=== PATIENT | male | born 1960 | race Caucasian/White ===

== ENCOUNTER 2016-12-12 02:17 | Emergency (ER) | payer MEDICARE ==
[~2016-12-12] VITALS: Ht 177.8 cm; Wt 73.7 kg
[~2016-12-12 02:17] MED LIST: CLON0.1T; CLON0.5T PO; FLUO20CA19; FLUO40CA9 PO; thorazine PO
[2016-12-12 02:20] VITALS: BP 166/109
[2016-12-12] MEDS ORDERED: OXYcodone/APAP 5/325MG TABLET ONE (02:58)
[2016-12-12] MEDS ORDERED: OXYcodone/APAP 5/325MG TABLET PO ONE (03:00)
== END 2016-12-12 03:42 | disposition home or self-care (01) ==
LOC: ED 03:36
DX: S20.212A Contusion of left front wall of thorax, initial encounter (principal); G89.11 Acute pain due to trauma; J44.9 Chronic obstructive pulmonary disease, unspecified; F31.9 Bipolar disorder, unspecified; F43.10 Post-traumatic stress disorder, unspecified; F19.10 Other psychoactive substance abuse, uncomplicated; F98.8 Other specified behavioral and emotional disorders with onset usually occurring in childhood and adolescence; W19.XXXA Unspecified fall, initial encounter; Y93.89 Activity, other specified; Y92.098 Other place in other non-institutional residence as the place of occurrence of the external cause; Y99.8 Other external cause status
CPT/HCPCS: 99284

== ENCOUNTER 2017-01-14 00:21 | Emergency (ER) | payer MEDICARE ==
[~2017-01-14] VITALS: Ht 177.8 cm; Wt 68.0 kg
[2017-01-14 00:28] VITALS: BP 174/111
[2017-01-14] MEDS ORDERED: ZIPRASIDONE 20 MG INJ IM ONE ×2 (00:30→01:00)
[2017-01-14 01:12] LABS: HEMATOCRIT 51.8 % (39.2-51.8); HEMOGLOBIN 17.4 g/dL (13.7-18.0); WHITE BLOOD COUNT 11.3 x10^3/uL (3.4-10)
[2017-01-14 01:23] LABS: BLOOD UREA NITROGEN 15 mg/dL (7-18)
[2017-01-14 01:29] LABS: ACETAMINOPHEN < 2 mcg/mL (10-30); ASPARTATE AMINO TRANSFERASE 79 U/L (15-37)
== END 2017-01-14 01:37 | disposition left against medical advice (07) ==
LOC: ED 01:31
DX: F15.10 Other stimulant abuse, uncomplicated (principal); R44.3 Hallucinations, unspecified; J44.9 Chronic obstructive pulmonary disease, unspecified; F17.200 Nicotine dependence, unspecified, uncomplicated
CPT/HCPCS: 36415; 80053; 80307; 80329; 85025; 99284; G0480

== ENCOUNTER 2018-02-24 07:45 | Emergency (ER) | payer MEDICARE ==
[~2018-02-24] VITALS: Ht 175.3 cm; Wt 71.2 kg
[2018-02-24 08:33] LABS: BASOPHILS # (AUTO) 0.03 x10^3/uL (0-0.1); BASOPHILS % (AUTO) 0 % (0-1); EOSINOPHILS # (AUTO) 0.18 x10^3/uL (0-0.4); EOSINOPHILS % (AUTO) 3 % (1-7); LYMPHOCYTES # (AUTO) 1.82 x10^3/uL (1-3.4); LYMPHOCYTES % (AUTO) 26 % (22-44); MD NO; MEAN CORPUSCULAR HEMOGLOBIN 31.6 pg (27.5-34.5); MEAN CORPUSCULAR HGB CONC 34.3 g/dL (33.2-36.2); MEAN CORPUSCULAR VOLUME 92.3 fL (81-97); MEAN PLATELET VOLUME 8.3 fL (7.4-10.4); MONOCYTES # (AUTO) 0.88 x10^3/uL (0.2-0.8); MONOCYTES % (AUTO) 12 % (2-9); NEUTROPHILS # (AUTO) 4.15 x10^3/uL (1.8-6.8); NEUTROPHILS % (AUTO) 59 % (42-75); PLATELET COUNT 333 x10^3/uL (130-400); RED BLOOD COUNT 5.22 x10^6/uL (4.38-5.82); RED CELL DISTRIBUTION WIDTH 14.5 % (9.4-14.8)
[2018-02-24 08:44] LABS: ALANINE AMINOTRANSFERASE 288 U/L (12-78); ALBUMIN 3.8 g/dL (3.4-5.0); ANION GAP 9 mmol/L (5-15); CALCIUM 8.8 mg/dL (8.5-10.1); CHLORIDE 105 mmol/L (98-107); CREATININE 0.78 mg/dL (0.7-1.3)
[2018-02-24 08:47] LABS: ALKALINE PHOSPHATASE 117 U/L (45-117); BILIRUBIN,TOTAL 0.9 mg/dL (0.2-1.0); TOTAL PROTEIN 7.9 g/dL (6.4-8.2)
[2018-02-24] MEDS ORDERED: LORazepam 1MG TABLET PO ONE (09:30)
[2018-02-24 09:51] LABS: CULTURE INDICATED? NO; MICROSCOPIC NOT IND
[2018-02-24] MEDS ORDERED: LORazepam 2 MG/ML, 1ML IVPush ONE (10:00)
[2018-02-24] MEDS ORDERED: SODIUM CHLORIDE FLUSH 10ML SYR IVF ONE (10:00)
[2018-02-24] MEDS ORDERED: THIAMINE 100MG TABLET PO ONE (10:00)
[2018-02-24] MEDS ORDERED: SODIUM CHLORIDE 0.9% 1,000ML IVBOLUS ONE (10:00)
[2018-02-24] MEDS ORDERED: LORazepam 2 MG/ML, 1ML ONE (10:26)
[2018-02-24 10:35] VITALS: BP 151/101
== END 2018-02-24 12:14 | disposition home or self-care (01) ==
LOC: ED 10:56
DX: R10.31 Right lower quadrant pain (principal); I10 Essential (primary) hypertension; F31.64 Bipolar disorder, current episode mixed, severe, with psychotic features; F15.10 Other stimulant abuse, uncomplicated; R74.0 Nonspecific elevation of levels of transaminase and lactic acid dehydrogenase [LDH]; J44.9 Chronic obstructive pulmonary disease, unspecified; F41.1 Generalized anxiety disorder
CPT/HCPCS: 36415; 74021; 80053; 81003; 85025; 96374; 99285; J2060; J7030

== ENCOUNTER 2019-07-21 14:18 | Inpatient (IN) | payer MEDICARE ==
[~2019-07-21] VITALS: Ht 177.8 cm; Wt 74.8 kg
[~2019-07-21 14:18] MED LIST changes: -CLON0.1T; +CLON0.1T22
[2019-07-21] MEDS ORDERED: BISACODYL 10 MG SUPP PR PRN (20:00)
[2019-07-21] MEDS ORDERED: ACETAMINOPHEN 325 MG TABLET PO PRN (20:00)
[2019-07-21] MEDS ORDERED: ONDANSETRON ODT 4 MG PO PRN (20:00)
[2019-07-21] MEDS ORDERED: POLYETHYLENE GLYCOL 17 GM PACKET PO PRN (20:00)
[2019-07-21 22:25] VITALS: BP_SYST 118; BP_SYST 131; BP_DIAS 91; BP_DIAS 94
[2019-07-21 23:00] VITALS: BP 131/94
[2019-07-21 23:21] LABS: CULTURE INDICATED? YES; MICROSCOPIC INDICATED
[2019-07-21 23:32] LABS: AMPHETAMINE SCREEN, URINE Negative (Negative); BARBITURATE SCREEN, URINE Negative (Negative); BENZODIAZEPINE SCREEN, URINE Negative (Negative); CANNABINOID SCREEN, URINE Positive (Negative); COCAINE SCREEN, URINE Negative (Negative); METHADONE SCREEN, URINE Negative (Negative); OPIATE SCREEN, URINE Negative (Negative)
[2019-07-22] MEDS ORDERED: ALBUTEROL SULFATE 2.5 MG/3 ML NPPB PRN (01:30)
[2019-07-22 06:36] LABS: BASOPHILS # (AUTO) 0.03 x10^3/uL (0-0.1); BASOPHILS % (AUTO) 0 % (0-1); EOSINOPHILS # (AUTO) 0.45 x10^3/uL (0-0.4); EOSINOPHILS % (AUTO) 6 % (1-7); LYMPHOCYTES # (AUTO) 2.27 x10^3/uL (1-3.4); LYMPHOCYTES % (AUTO) 32 % (22-44); MD NO; MEAN CORPUSCULAR HEMOGLOBIN 32.5 pg (27.5-34.5); MEAN CORPUSCULAR VOLUME 95.5 fL (81-97); MEAN PLATELET VOLUME 9.9 fL (7.4-10.4); MONOCYTES # (AUTO) 0.68 x10^3/uL (0.2-0.8); MONOCYTES % (AUTO) 10 % (2-9); NEUTROPHILS # (AUTO) 3.77 x10^3/uL (1.8-6.8); NEUTROPHILS % (AUTO) 52 % (42-75); PLATELET COUNT 205 x10^3/uL (130-400); RED BLOOD COUNT 4.93 x10^6/uL (4.38-5.82); RED CELL DISTRIBUTION WIDTH 14.6 % (9.4-14.8)
[2019-07-22 06:53] LABS: ANION GAP 8 mmol/L (5-15); CALCIUM 8.8 mg/dL (8.5-10.1); CHLORIDE 114 mmol/L (98-107); CHOLESTEROL, TOTAL 100 mg/dL (140-239); CREATININE 0.78 mg/dL (0.7-1.3); TRIGLYCERIDES 86 mg/dL (50-200); VLDL CHOLESTEROL 17 mg/dL (0-25)
[2019-07-22] MEDS: MUPIROCIN OINT 2%, 22GM TP SCH ×2 (07:00→17:53)
[2019-07-22 07:19] LABS: CHOL/HDL RATIO 2.8; FREE T4 (FREE THYROXINE) 1.31 ng/dL (0.76-1.46); HDL CHOL % 36 % (26-37); HDL CHOLESTEROL (DIRECT) 36 mg/dL (40-60); LDL CHOLESTEROL,CALCULATED 47 mg/dL (54-169); LDL/HDL RATIO 1.3 (0.5-3.0)
[2019-07-22 07:24] VITALS: BP 120/84
[2019-07-22] MEDS: NICOTINE 21 MG/24 HR PATCH.TD24 TD SCH (08:36)
[2019-07-22] MEDS: DOCUSATE 100 MG CAPSULE PO PRN (08:37)
[2019-07-22] MEDS: hydrOXyzine 50MG TABLET PO PRN (08:37)
[2019-07-22 09:23] LABS: ALBUMIN 3.3 g/dL (3.4-5.0); BILIRUBIN, DIRECT 0.2 mg/dL (0.1-0.2)
[2019-07-22 09:31] LABS: BILIRUBIN,INDIRECT 0.3 mg/dL (0.0-2.0); BILIRUBIN,TOTAL 0.5 mg/dL (0.2-1.0)
[2019-07-22] MEDS: LACTULOSE 20 GM/30 ML UDC PO SCH (10:08)
[2019-07-22] MEDS: BUSPIRONE 5 MG TABLET PO SCH ×3 (14:40→20:14)
[2019-07-22] MEDS: FLUOXETINE HCL 20 MG CAPSULE PO SCH (14:40)
[2019-07-22 20:04] VITALS: BP 115/75
[2019-07-22] MEDS: ZIPRASIDONE 40MG CAPSULE PO SCH (20:14)
[2019-07-23] MEDS: MUPIROCIN OINT 2%, 22GM TP SCH ×2 (06:07→18:19)
[2019-07-23 06:39] LABS: ALBUMIN 3.2 g/dL (3.4-5.0); ANION GAP 7 mmol/L (5-15); CALCIUM 8.9 mg/dL (8.5-10.1); CHLORIDE 112 mmol/L (98-107)
[2019-07-23 06:43] LABS: ALANINE AMINOTRANSFERASE 112 U/L (12-78); ALKALINE PHOSPHATASE 78 U/L (45-117); BILIRUBIN,TOTAL 0.5 mg/dL (0.2-1.0); CREATININE 0.79 mg/dL (0.7-1.3); TOTAL PROTEIN 6.8 g/dL (6.4-8.2)
[2019-07-23 07:25] VITALS: BP 118/77
[2019-07-23] MEDS: ZIPRASIDONE 40MG CAPSULE PO SCH ×2 (08:26→20:03)
[2019-07-23] MEDS: FLUOXETINE HCL 20 MG CAPSULE PO SCH (08:26)
[2019-07-23] MEDS: LACTULOSE 20 GM/30 ML UDC PO SCH (08:26)
[2019-07-23] MEDS: hydrOXyzine 50MG TABLET PO PRN (08:27)
[2019-07-23] MEDS: NICOTINE 21 MG/24 HR PATCH.TD24 TD SCH (08:27)
[2019-07-23] MEDS: DOCUSATE 100 MG CAPSULE PO PRN (08:27)
[2019-07-23] MEDS: BUSPIRONE 5 MG TABLET PO SCH ×3 (08:27→20:03)
[2019-07-23] MEDS ORDERED: LORazepam 1MG TABLET ONE (14:10)
[2019-07-23] MEDS: IBUPROFEN 200 MG TABLET PO PRN (14:13)
[2019-07-23] MEDS ORDERED: LORazepam 1MG TABLET PO ONE (14:30)
[2019-07-24] MEDS: MUPIROCIN OINT 2%, 22GM TP SCH ×2 (06:03→17:51)
[2019-07-24 07:51] VITALS: BP 131/87
[2019-07-24] MEDS: BUSPIRONE 5 MG TABLET PO SCH ×3 (08:36→20:11)
[2019-07-24] MEDS: FLUOXETINE HCL 20 MG CAPSULE PO SCH (08:36)
[2019-07-24] MEDS: ZIPRASIDONE 40MG CAPSULE PO SCH ×2 (08:36→20:11)
[2019-07-24] MEDS: LACTULOSE 20 GM/30 ML UDC PO SCH (08:36)
[2019-07-24] MEDS: NICOTINE 21 MG/24 HR PATCH.TD24 TD SCH (08:38)
[2019-07-24] MEDS: IBUPROFEN 200 MG TABLET PO PRN (08:43)
[2019-07-24] MEDS: hydrOXyzine 50MG TABLET PO PRN ×3 (08:43→20:11)
[2019-07-24] MEDS ORDERED: LORazepam 1MG TABLET PO ONE (17:30)
[2019-07-24 19:38] VITALS: BP 131/84
[2019-07-25] MEDS: MUPIROCIN OINT 2%, 22GM TP SCH ×2 (06:30→17:41)
[2019-07-25 07:34] VITALS: BP 124/82
[2019-07-25] MEDS: LACTULOSE 20 GM/30 ML UDC PO SCH (09:00)
[2019-07-25] MEDS: FLUOXETINE HCL 20 MG CAPSULE PO SCH (09:00)
[2019-07-25] MEDS: IBUPROFEN 200 MG TABLET PO PRN (09:00)
[2019-07-25] MEDS: ZIPRASIDONE 40MG CAPSULE PO SCH ×2 (09:01→20:41)
[2019-07-25] MEDS: BUSPIRONE 5 MG TABLET PO SCH ×3 (09:01→20:41)
[2019-07-25] MEDS: NICOTINE 21 MG/24 HR PATCH.TD24 TD SCH (09:01)
[2019-07-25] MEDS: QUETIAPINE 25MG TABLET PO PRN ×2 (10:54→20:45)
[2019-07-25] MEDS: hydrOXyzine 50MG TABLET PO PRN (14:05)
[2019-07-25 19:45] VITALS: BP 110/73
[2019-07-26] MEDS: QUETIAPINE 25MG TABLET PO PRN ×3 (03:17→20:33)
[2019-07-26] MEDS: MUPIROCIN OINT 2%, 22GM TP SCH ×2 (06:22→16:17)
[2019-07-26 07:39] VITALS: BP 120/84
[2019-07-26] MEDS: FLUOXETINE HCL 20 MG CAPSULE PO SCH (08:35)
[2019-07-26] MEDS: BUSPIRONE 5 MG TABLET PO SCH ×3 (08:36→20:33)
[2019-07-26] MEDS: ZIPRASIDONE 40MG CAPSULE PO SCH ×2 (08:36→20:33)
[2019-07-26] MEDS: hydrOXyzine 50MG TABLET PO PRN ×2 (08:36→16:17)
[2019-07-26] MEDS: NICOTINE 21 MG/24 HR PATCH.TD24 TD SCH (08:36)
[2019-07-26] MEDS: LACTULOSE 20 GM/30 ML UDC PO SCH (08:36)
[2019-07-26] MEDS ORDERED: LORazepam 1MG TABLET ONE (11:06)
[2019-07-26] MEDS: LORazepam 1MG TABLET PO PRN ×2 (11:09→20:33)
[2019-07-26 19:46] VITALS: BP 115/79
[2019-07-27 07:11] VITALS: BP 137/91
[2019-07-27] MEDS: FLUOXETINE HCL 20 MG CAPSULE PO SCH (08:20)
[2019-07-27] MEDS: LACTULOSE 20 GM/30 ML UDC PO SCH (08:20)
[2019-07-27] MEDS: NICOTINE 21 MG/24 HR PATCH.TD24 TD SCH (08:20)
[2019-07-27] MEDS: BUSPIRONE 5 MG TABLET PO SCH ×3 (08:20→20:13)
[2019-07-27] MEDS: ZIPRASIDONE 40MG CAPSULE PO SCH (08:20)
[2019-07-27] MEDS: hydrOXyzine 50MG TABLET PO PRN ×2 (08:40→16:48)
[2019-07-27] MEDS: LORazepam 1MG TABLET PO PRN ×2 (08:41→20:13)
[2019-07-27] MEDS: MUPIROCIN OINT 2%, 22GM TP SCH ×2 (08:41→21:12)
[2019-07-27] MEDS: QUETIAPINE 25MG TABLET PO PRN ×3 (11:29→20:15)
[2019-07-27 19:30] VITALS: BP 107/74
[2019-07-27] MEDS: ZIPRASIDONE 20MG CAPSULE PO SCH (20:13)
[2019-07-28 07:15] VITALS: BP 125/73
[2019-07-28] MEDS: FLUOXETINE HCL 20 MG CAPSULE PO SCH (08:10)
[2019-07-28] MEDS: LACTULOSE 20 GM/30 ML UDC PO SCH (08:10)
[2019-07-28] MEDS: ZIPRASIDONE 20MG CAPSULE PO SCH ×2 (08:10→20:10)
[2019-07-28] MEDS: NICOTINE 21 MG/24 HR PATCH.TD24 TD SCH (08:10)
[2019-07-28] MEDS: BUSPIRONE 5 MG TABLET PO SCH ×3 (08:11→20:09)
[2019-07-28] MEDS: LORazepam 1MG TABLET PO PRN ×2 (08:30→20:13)
[2019-07-28] MEDS: QUETIAPINE 25MG TABLET PO PRN ×2 (08:31→13:56)
[2019-07-28] MEDS: MUPIROCIN OINT 2%, 22GM TP SCH ×2 (08:36→21:16)
[2019-07-28] MEDS: hydrOXyzine 50MG TABLET PO PRN (13:56)
[2019-07-28 19:31] VITALS: BP 129/83
[2019-07-28] MEDS: IBUPROFEN 200 MG TABLET PO PRN (20:00)
[2019-07-29 07:16] VITALS: BP 139/98
[2019-07-29] MEDS: LORazepam 1MG TABLET PO PRN (08:40)
[2019-07-29] MEDS: FLUOXETINE HCL 20 MG CAPSULE PO SCH (08:40)
[2019-07-29] MEDS: LACTULOSE 20 GM/30 ML UDC PO SCH (08:40)
[2019-07-29] MEDS: ZIPRASIDONE 20MG CAPSULE PO SCH ×2 (08:41→20:09)
[2019-07-29] MEDS: BUSPIRONE 5 MG TABLET PO SCH ×3 (08:41→20:08)
[2019-07-29] MEDS: IBUPROFEN 200 MG TABLET PO PRN ×2 (08:41→16:48)
[2019-07-29] MEDS: NICOTINE 21 MG/24 HR PATCH.TD24 TD SCH (08:43)
[2019-07-29] MEDS: MUPIROCIN OINT 2%, 22GM TP SCH ×2 (08:44→20:09)
[2019-07-29] MEDS: QUETIAPINE 25MG TABLET PO PRN ×2 (09:49→17:45)
[2019-07-29 19:15] VITALS: BP 148/91
[2019-07-29] MEDS: DIVALPROEX 500 MG TAB.ER.24H PO SCH (20:08)
[2019-07-30 07:05] VITALS: BP 151/101
[2019-07-30] MEDS: FLUOXETINE HCL 20 MG CAPSULE PO SCH (08:31)
[2019-07-30] MEDS: BUSPIRONE 5 MG TABLET PO SCH ×3 (08:31→20:12)
[2019-07-30] MEDS: DIVALPROEX 500 MG TAB.ER.24H PO SCH ×4 (08:31→20:12)
[2019-07-30] MEDS: ZIPRASIDONE 20MG CAPSULE PO SCH ×2 (08:32→20:12)
[2019-07-30] MEDS: NICOTINE 21 MG/24 HR PATCH.TD24 TD SCH (08:32)
[2019-07-30] MEDS: LACTULOSE 20 GM/30 ML UDC PO SCH (08:39)
[2019-07-30] MEDS: LORazepam 1MG TABLET PO PRN ×2 (08:39→20:12)
[2019-07-30] MEDS: QUETIAPINE 25MG TABLET PO PRN (11:15)
[2019-07-30] MEDS: MUPIROCIN OINT 2%, 22GM TP SCH ×2 (12:10→20:13)
[2019-07-30] MEDS: hydrOXyzine 50MG TABLET PO PRN (13:15)
[2019-07-30] MEDS ORDERED: LORazepam 1MG TABLET PO STA (16:11)
[2019-07-30 20:06] VITALS: BP 114/70
[2019-07-31] MEDS: IBUPROFEN 200 MG TABLET PO PRN (06:12)
[2019-07-31 07:09] VITALS: BP 125/83
[2019-07-31] MEDS: FLUOXETINE HCL 20 MG CAPSULE PO SCH (08:51)
[2019-07-31] MEDS: DIVALPROEX 500 MG TAB.ER.24H PO SCH ×3 (08:52→20:24)
[2019-07-31] MEDS: BUSPIRONE 5 MG TABLET PO SCH ×3 (08:52→21:00)
[2019-07-31] MEDS: ZIPRASIDONE 20MG CAPSULE PO SCH ×2 (08:52→20:23)
[2019-07-31] MEDS: LACTULOSE 20 GM/30 ML UDC PO SCH (08:53)
[2019-07-31] MEDS: MUPIROCIN OINT 2%, 22GM TP SCH ×2 (08:53→20:24)
[2019-07-31] MEDS: LORazepam 1MG TABLET PO PRN ×2 (08:53→20:24)
[2019-07-31] MEDS: NICOTINE 21 MG/24 HR PATCH.TD24 TD SCH (08:59)
[2019-07-31] MEDS: hydrOXyzine 50MG TABLET PO PRN (14:46)
[2019-07-31] MEDS ORDERED: BENZTROPINE 1 MG TABLET PO ONE (15:43)
[2019-07-31] MEDS ORDERED: QUETIAPINE 100MG TABLET PO ONE (16:00)
[2019-07-31 19:48] VITALS: BP 116/73
[2019-08-01] MEDS: QUETIAPINE 25MG TABLET PO PRN ×2 (07:36→15:13)
[2019-08-01 07:39] VITALS: BP 134/91
[2019-08-01] MEDS: MUPIROCIN OINT 2%, 22GM TP SCH ×2 (08:40→21:03)
[2019-08-01] MEDS: BUSPIRONE 5 MG TABLET PO SCH ×3 (08:41→20:19)
[2019-08-01] MEDS: NICOTINE 21 MG/24 HR PATCH.TD24 TD SCH (08:41)
[2019-08-01] MEDS: ZIPRASIDONE 20MG CAPSULE PO SCH ×2 (08:41→20:19)
[2019-08-01] MEDS: DIVALPROEX 500 MG TAB.ER.24H PO SCH ×3 (08:41→20:19)
[2019-08-01] MEDS: FLUOXETINE HCL 20 MG CAPSULE PO SCH (08:41)
[2019-08-01] MEDS: LACTULOSE 20 GM/30 ML UDC PO SCH (08:41)
[2019-08-01] MEDS: LORazepam 1MG TABLET PO PRN ×2 (09:30→21:03)
[2019-08-01 19:46] VITALS: BP 113/72
[2019-08-02 07:35] VITALS: BP 130/85
[2019-08-02] MEDS: BUSPIRONE 5 MG TABLET PO SCH ×3 (08:36→19:52)
[2019-08-02] MEDS: FLUOXETINE HCL 20 MG CAPSULE PO SCH (08:37)
[2019-08-02] MEDS: DIVALPROEX 500 MG TAB.ER.24H PO SCH ×3 (08:37→19:52)
[2019-08-02] MEDS: BENZTROPINE 1 MG TABLET PO SCH (08:37)
[2019-08-02] MEDS: QUETIAPINE 25MG TABLET PO PRN ×2 (08:37→19:54)
[2019-08-02] MEDS: ZIPRASIDONE 20MG CAPSULE PO SCH ×2 (08:37→19:54)
[2019-08-02] MEDS: LACTULOSE 20 GM/30 ML UDC PO SCH (08:37)
[2019-08-02] MEDS: NICOTINE 21 MG/24 HR PATCH.TD24 TD SCH (08:38)
[2019-08-02] MEDS: MUPIROCIN OINT 2%, 22GM TP SCH ×2 (08:41→20:09)
[2019-08-02] MEDS: LORazepam 1MG TABLET PO PRN ×3 (09:33→23:07)
[2019-08-02 19:45] VITALS: BP 128/95
[2019-08-03 07:36] VITALS: BP 133/84
[2019-08-03] MEDS: LACTULOSE 20 GM/30 ML UDC PO SCH (08:51)
[2019-08-03] MEDS: MUPIROCIN OINT 2%, 22GM TP SCH ×2 (08:51→19:51)
[2019-08-03] MEDS: ZIPRASIDONE 20MG CAPSULE PO SCH ×2 (08:52→19:50)
[2019-08-03] MEDS: BUSPIRONE 5 MG TABLET PO SCH ×3 (08:52→19:50)
[2019-08-03] MEDS: LORazepam 1MG TABLET PO PRN ×3 (08:52→23:31)
[2019-08-03] MEDS: DIVALPROEX 500 MG TAB.ER.24H PO SCH ×3 (08:52→19:50)
[2019-08-03] MEDS: NICOTINE 21 MG/24 HR PATCH.TD24 TD SCH (08:52)
[2019-08-03] MEDS: FLUOXETINE HCL 20 MG CAPSULE PO SCH (08:52)
[2019-08-03] MEDS: BENZTROPINE 1 MG TABLET PO SCH (08:52)
[2019-08-03 19:10] VITALS: BP 118/79
[2019-08-03] MEDS: QUETIAPINE 25MG TABLET PO PRN (19:50)
[2019-08-04 07:44] VITALS: BP 123/85
[2019-08-04] MEDS: BENZTROPINE 1 MG TABLET PO SCH (08:54)
[2019-08-04] MEDS: LACTULOSE 20 GM/30 ML UDC PO SCH (08:54)
[2019-08-04] MEDS: DIVALPROEX 500 MG TAB.ER.24H PO SCH ×3 (08:54→20:16)
[2019-08-04] MEDS: FLUOXETINE HCL 20 MG CAPSULE PO SCH (08:54)
[2019-08-04] MEDS: ZIPRASIDONE 20MG CAPSULE PO SCH ×2 (08:54→20:16)
[2019-08-04] MEDS: BUSPIRONE 5 MG TABLET PO SCH ×3 (08:54→20:15)
[2019-08-04] MEDS: NICOTINE 21 MG/24 HR PATCH.TD24 TD SCH (08:55)
[2019-08-04] MEDS: LORazepam 1MG TABLET PO PRN ×3 (08:55→20:21)
[2019-08-04] MEDS: MUPIROCIN OINT 2%, 22GM TP SCH ×2 (09:24→21:10)
[2019-08-04] MEDS: IBUPROFEN 200 MG TABLET PO PRN (14:20)
[2019-08-04] MEDS ORDERED: ORAJEL 7GM TUBE MM PRN (14:30)
[2019-08-04 19:39] VITALS: BP 131/82
[2019-08-05 07:41] VITALS: BP 127/83
[2019-08-05] MEDS: LACTULOSE 20 GM/30 ML UDC PO SCH (08:43)
[2019-08-05] MEDS: BENZTROPINE 1 MG TABLET PO SCH (08:44)
[2019-08-05] MEDS: BUSPIRONE 5 MG TABLET PO SCH ×3 (08:44→21:02)
[2019-08-05] MEDS: DIVALPROEX 500 MG TAB.ER.24H PO SCH ×3 (08:45→21:02)
[2019-08-05] MEDS: ZIPRASIDONE 20MG CAPSULE PO SCH ×2 (08:46→21:02)
[2019-08-05] MEDS: NICOTINE 21 MG/24 HR PATCH.TD24 TD SCH (08:47)
[2019-08-05] MEDS: FLUOXETINE HCL 20 MG CAPSULE PO SCH (08:47)
[2019-08-05] MEDS: MUPIROCIN OINT 2%, 22GM TP SCH ×2 (08:48→21:03)
[2019-08-05] MEDS: LORazepam 1MG TABLET PO PRN ×3 (08:49→21:01)
[2019-08-05] MEDS: IBUPROFEN 200 MG TABLET PO PRN ×2 (08:49→16:38)
[2019-08-05 19:00] VITALS: BP 148/98
[2019-08-06 07:34] VITALS: BP 126/90
[2019-08-06] MEDS: LACTULOSE 20 GM/30 ML UDC PO SCH (09:08)
[2019-08-06] MEDS: MUPIROCIN OINT 2%, 22GM TP SCH ×2 (09:08→21:11)
[2019-08-06] MEDS: BUSPIRONE 5 MG TABLET PO SCH ×3 (09:09→20:34)
[2019-08-06] MEDS: BENZTROPINE 1 MG TABLET PO SCH (09:10)
[2019-08-06] MEDS: ZIPRASIDONE 20MG CAPSULE PO SCH ×2 (09:11→20:34)
[2019-08-06] MEDS: NICOTINE 21 MG/24 HR PATCH.TD24 TD SCH (09:11)
[2019-08-06] MEDS: DIVALPROEX 500 MG TAB.ER.24H PO SCH ×3 (09:11→21:10)
[2019-08-06] MEDS: FLUOXETINE 10 MG CAP PO SCH (09:12)
[2019-08-06] MEDS: LORazepam 1MG TABLET PO PRN ×2 (09:13→18:02)
[2019-08-06] MEDS: IBUPROFEN 200 MG TABLET PO PRN ×2 (09:13→18:03)
[2019-08-06 19:53] VITALS: BP 129/92
[2019-08-07] MEDS: LORazepam 1MG TABLET PO PRN ×4 (00:51→20:11)
[2019-08-07 07:47] VITALS: BP 140/83
[2019-08-07] MEDS: ZIPRASIDONE 20MG CAPSULE PO SCH ×2 (08:31→20:11)
[2019-08-07] MEDS: DIVALPROEX 500 MG TAB.ER.24H PO SCH ×3 (08:31→20:11)
[2019-08-07] MEDS: LACTULOSE 20 GM/30 ML UDC PO SCH (08:31)
[2019-08-07] MEDS: FLUOXETINE 10 MG CAP PO SCH (08:31)
[2019-08-07] MEDS: BENZTROPINE 1 MG TABLET PO SCH (08:32)
[2019-08-07] MEDS: BUSPIRONE 5 MG TABLET PO SCH ×3 (08:32→20:11)
[2019-08-07] MEDS: NICOTINE 21 MG/24 HR PATCH.TD24 TD SCH (08:34)
[2019-08-07] MEDS: MUPIROCIN OINT 2%, 22GM TP SCH ×2 (08:34→21:12)
[2019-08-07 19:36] VITALS: BP 113/75
[2019-08-08 07:32] VITALS: BP 145/87
[2019-08-08] MEDS: LORazepam 1MG TABLET PO PRN (08:19)
[2019-08-08] MEDS: BENZTROPINE 1 MG TABLET PO SCH (08:19)
[2019-08-08] MEDS: DIVALPROEX 500 MG TAB.ER.24H PO SCH (08:19)
[2019-08-08] MEDS: LACTULOSE 20 GM/30 ML UDC PO SCH (08:19)
[2019-08-08] MEDS: BUSPIRONE 5 MG TABLET PO SCH (08:19)
[2019-08-08] MEDS: ZIPRASIDONE 20MG CAPSULE PO SCH (08:19)
[2019-08-08] MEDS: IBUPROFEN 200 MG TABLET PO PRN (08:26)
[2019-08-08] MEDS: FLUOXETINE 10 MG CAP PO SCH (08:26)
[2019-08-08] MEDS: MUPIROCIN OINT 2%, 22GM TP SCH (08:27)
[2019-08-08] MEDS: NICOTINE 21 MG/24 HR PATCH.TD24 TD SCH (09:00)
[2019-08-08] MEDS ORDERED: QUET25TA7 PO (09:25)
[2019-08-08] MEDS ORDERED: BENZ1TAB61 PO (09:25)
[2019-08-08] MEDS ORDERED: LORA-446 PO (09:25)
[2019-08-08] MEDS ORDERED: FLUO10CA14 PO (09:25)
[2019-08-08] MEDS ORDERED: NICO-487 TD (09:25)
[2019-08-08] MEDS ORDERED: ZIPR20CA2 PO (09:25)
[2019-08-08] MEDS ORDERED: HYDR50TA99 PO (09:25)
[2019-08-08] MEDS ORDERED: DIVA500T4 PO (09:25)
[2019-08-08] MEDS ORDERED: BUSP5TAB2 PO (09:25)
== END 2019-08-08 11:20 | disposition home or self-care (01) | DRG 885 ==
LOC: 3E 22:27
PROVIDERS: ADMIT Psychiatry & Neurology Psychosomatic Medicine; ATTEND Psychiatry & Neurology Psychosomatic Medicine
DX: F31.5 Bipolar disorder, current episode depressed, severe, with psychotic features (principal); R45.851 Suicidal ideations; B19.10 Unspecified viral hepatitis B without hepatic coma; F43.10 Post-traumatic stress disorder, unspecified; L29.9 Pruritus, unspecified; F15.11 Other stimulant abuse, in remission; F90.9 Attention-deficit hyperactivity disorder, unspecified type; G40.909 Epilepsy, unspecified, not intractable, without status epilepticus; F17.210 Nicotine dependence, cigarettes, uncomplicated; K59.00 Constipation, unspecified; F41.1 Generalized anxiety disorder; F10.11 Alcohol abuse, in remission; Z82.49 Family history of ischemic heart disease and other diseases of the circulatory system; Z91.5 Personal history of self-harm; Z86.14 Personal history of Methicillin resistant Staphylococcus aureus infection; Z90.89 Acquired absence of other organs; Z80.9 Family history of malignant neoplasm, unspecified; Z79.899 Other long term (current) drug therapy; Z81.3 Family history of other psychoactive substance abuse and dependence; Z88.8 Allergy status to other drugs, medicaments and biological substances
CPT/HCPCS: 36415; 71045; 80048; 80053; 80061; 80076; 80307; 81001; 82140; 82607; 84439; 84443; 85025; 87086; 93005; Q0162

== ENCOUNTER 2019-08-20 21:41 | Emergency (ER) | payer MEDICARE ==
[~2019-08-20] VITALS: Ht 172.7 cm; Wt 70.0 kg
[~2019-08-20 21:41] MED LIST changes: +BENZ1TAB61 PO; +BUSP5TAB2 PO; +DIVA500T4 PO; +FLUO10CA14 PO; +HYDR50TA99 PO; +LORA-446 PO; +NICO-487 TD; +QUET25TA7 PO; +ZIPR20CA2 PO
[2019-08-20 21:55] VITALS: BP 136/80
--- NOTE | 2019-08-20 22:01 | NUR ---
ZOLTAN GOMEZ FROM [facility] WHERE PT HAS BEEN STAYING FOR 'SEVERAL WEEKS' FOR CO SI X 6 MONTHS. PLAN TO HANG SELF. +VISUAL AND AUDITORY HALLUCINATIONS. HX OF SCHIZO-AFFECTIVE DISORDER. PT REPORTS HAVING BEEN OFF ALL PSYCH MEDS FOR ONE WEEK THEN RESTARTED RECENTLY. PT RESTLESS BUT POLITE AND COOPERATIVE WITH STAFF. AMBULATED STEADILY TO BATHROOM TO PROVIDE UDS. ALL BELONGINGS BAGGED (2), LABELED, AND PLACED IN LOCKER FOR SAFE KEEPING. UDS COLLECTED AND SENT TO LAB
--- NOTE | 2019-08-20 22:10 | NUR ---
SITTER REQUESTED. PT IN VIEW FROM NURSES STATION
[2019-08-20 22:21] LABS: BASOPHILS # (AUTO) 0.02 x10^3/uL (0-0.1); BASOPHILS % (AUTO) 0 % (0-1); EOSINOPHILS # (AUTO) 0.29 x10^3/uL (0-0.4); EOSINOPHILS % (AUTO) 6 % (1-7); LYMPHOCYTES # (AUTO) 1.99 x10^3/uL (1-3.4); LYMPHOCYTES % (AUTO) 38 % (22-44); MD NO; MEAN CORPUSCULAR HEMOGLOBIN 32.5 pg (27.5-34.5); MEAN CORPUSCULAR HGB CONC 33.8 g/dL (33.2-36.2); MEAN PLATELET VOLUME 8.6 fL (7.4-10.4); MONOCYTES # (AUTO) 0.64 x10^3/uL (0.2-0.8); MONOCYTES % (AUTO) 12 % (2-9); NEUTROPHILS # (AUTO) 2.25 x10^3/uL (1.8-6.8); NEUTROPHILS % (AUTO) 43 % (42-75); PLATELET COUNT 206 x10^3/uL (130-400); RED BLOOD COUNT 4.72 x10^6/uL (4.38-5.82); RED CELL DISTRIBUTION WIDTH 15.3 % (9.4-14.8)
[2019-08-20 22:25] LABS: AMPHETAMINE SCREEN, URINE Negative (Negative); BARBITURATE SCREEN, URINE Negative (Negative); BENZODIAZEPINE SCREEN, URINE Negative (Negative); CANNABINOID SCREEN, URINE Positive (Negative); COCAINE SCREEN, URINE Negative (Negative); METHADONE SCREEN, URINE Negative (Negative); OPIATE SCREEN, URINE Negative (Negative)
[2019-08-20 22:27] LABS: ALBUMIN 3.3 g/dL (3.4-5.0); ANION GAP 6 mmol/L (5-15); CALCIUM 8.2 mg/dL (8.5-10.1); CHLORIDE 109 mmol/L (98-107); SALICYLATE LEVEL < 1.7 mg/dL (2.8-20.0)
--- NOTE | 2019-08-20 22:57 | NUR ---
TELEPSYCH CONSULT INITIATED BY TP RN. MONITOR AT BEDSIDE. PT CONTINUES TO REST CALMLY IN [facility]
--- NOTE | 2019-08-20 23:06 | NUR ---
REPORT TO TELEPSYCH PROVIDER, AWAITING CONSULT.
[2019-08-20] MEDS ORDERED: NICOTINE 21 MG/24 HR PATCH.TD24 TD ONE (23:30)
--- NOTE | 2019-08-20 23:41 | NUR ---
SPOKE TO 3E ABOUT PT. PLATE CUTTER IS ON LUNCH BUT WILL CALL BACK WHEN SHE RETURNS.
--- NOTE | 2019-08-21 | NUR ---
REPORT TO LONA TORRES. PT TRANSFERED TO ROOM 3 VIA [facility]
[2019-08-21] MEDS ORDERED: NICOTINE 21 MG/24 HR PATCH.TD24 ONE (00:03)
--- NOTE | 2019-08-21 00:17 | NUR ---
REPORT TO LONA ORTEGA [facility] JORDAN STATES THAT SHE WILL CONSULT PSYCH MD FOR POSSIBLE ADMIT
--- NOTE | 2019-08-21 00:53 | NUR ---
Accepted by Valerie. Accepting doctor, Dr. Erazo Bed [id number]. LONA Steiner.
== END 2019-08-21 01:42 ==
LOC: ED 22:24
DX: F25.9 Schizoaffective disorder, unspecified (principal); J44.9 Chronic obstructive pulmonary disease, unspecified; I10 Essential (primary) hypertension; F17.200 Nicotine dependence, unspecified, uncomplicated
CPT/HCPCS: 36415; 80048; 80307; 82040; 85025; 99285

== ENCOUNTER 2020-08-18 19:37 | Emergency (ER) | payer MEDICARE ==
[~2020-08-18] VITALS: Ht 177.8 cm; Wt 87.0 kg
[~2020-08-18 19:37] MED LIST changes: -FLUO10CA14 PO; +FLUO10CA15 PO; +FLUO20CA23 PO; -NICO-487 TD; +NICO-587 TD; +QUET100T PO; +TOPI25TA32 PO
[2020-08-18 19:44] VITALS: BP 134/82
--- NOTE | 2020-08-18 19:54 | NUR ---
FELECIA Luna voluntary from "tomorrows another day retirement", pt states that the retirement will not let him take his ativan and as a result he is feeling suicidal and very anxious. Pt states he would slice his neck or obtain gun to kill himself. No weapons on person. Pt expresses auditory hallucinations, noises telling him the govt is listening etc. No visual hallucinations. cooperative, anxious on arrival-belongings removed/labelled/storage. Urine specimen provided. AIDET provided. Room safety check, doors down, sitter in line of site. Jamesg: fabian
--- NOTE | 2020-08-18 20:15 | NUR ---
ER HARSHAL, JUSTEN AT BEDSIDE. PT ASSESSMENT AND POC DISCUSSED. PLAN FOR ADMIT TO U DISCUSSED. PT PLEASANT AND COOPERATIVE. URINE SENT TO LAB. PT MED NOTED. SITTER AT DOORWAY WITH PT IN LINE OF SIGHT. NAD NOTED.
[2020-08-18] MEDS ORDERED: QUETIAPINE 100MG TABLET PO ONE (20:18)
[2020-08-18] MEDS ORDERED: QUETIAPINE 100MG TABLET ONE (20:25)
[2020-08-18] MEDS ORDERED: LORazepam 1MG TABLET ONE (20:26)
[2020-08-18] MEDS ORDERED: LORazepam 1MG TABLET PO ONE (20:30)
[2020-08-18 20:43] LABS: MICROSCOPIC NOT IND
[2020-08-18 20:50] LABS: AMPHETAMINE SCREEN, URINE Negative (Negative); BARBITURATE SCREEN, URINE Negative (Negative); BENZODIAZEPINE SCREEN, URINE Negative (Negative); CANNABINOID SCREEN, URINE Positive (Negative); COCAINE SCREEN, URINE Negative (Negative); METHADONE SCREEN, URINE Negative (Negative); OPIATE SCREEN, URINE Negative (Negative)
[2020-08-18 20:52] LABS: BASOPHILS % (AUTO) 1 % (0-1); EOSINOPHILS % (AUTO) 6 % (1-7); LYMPHOCYTES % (AUTO) 34 % (22-44); MEAN CORPUSCULAR HEMOGLOBIN 32.1 pg (27.5-34.5); MEAN CORPUSCULAR HGB CONC 34.2 g/dL (33.2-36.2); MEAN PLATELET VOLUME 8.7 fL (7.4-10.4); MONOCYTES % (AUTO) 12 % (2-9); NEUTROPHILS % (AUTO) 48 % (42-75); PLATELET COUNT 227 x10^3/uL (130-400); RED BLOOD COUNT 5.11 x10^6/uL (4.38-5.82); RED CELL DISTRIBUTION WIDTH 15.5 % (9.4-14.8)
--- NOTE | 2020-08-18 20:52 | NUR ---
SBAR RPT TO LONA PATEL
[2020-08-18 21:01] LABS: MD NO
[2020-08-18 21:05] LABS: ALANINE AMINOTRANSFERASE 119 U/L (12-78); ALBUMIN 3.8 g/dL (3.4-5.0); ANION GAP 8 mmol/L (5-15); CALCIUM 9.1 mg/dL (8.5-10.1); CHLORIDE 114 mmol/L (98-107); CREATININE 1.14 mg/dL (0.7-1.3)
[2020-08-18 21:13] LABS: ALKALINE PHOSPHATASE 114 U/L (45-117); BILIRUBIN,TOTAL 0.5 mg/dL (0.2-1.0); TOTAL PROTEIN 8.3 g/dL (6.4-8.2)
[2020-08-18 21:19] LABS: SALICYLATE LEVEL < 1.7 mg/dL (2.8-20.0)
--- NOTE | 2020-08-18 21:28 | NUR ---
1ST CONTACT C PT. PT CALM & COOPERATIVE. RESTING ON CART IN NAD. DENIES ANY NEEDS. JUICE PROVIDED. SITTER OUTSIDE OF ROOM. WILL CTM.
--- NOTE | 2020-08-18 22:30 | NUR ---
PT CALM & COOPERATIVE. WATCHING TV. RR EVEN NON LABORED. BACTERIOLOGIST PHARMACEUTICAL TO SEE PT. SITTER OUTSIDE OF ROOM.
--- NOTE | 2020-08-18 23:30 | NUR ---
PT WATCHING TV. CALM & COOPERATIVE. RR EVEN, NON LABORED. SITTER OUTSIDE OF ROOM. WILL CTM.
--- NOTE | 2020-08-19 00:47 | NUR ---
PT AWAKE, WATCHING TV. CALM & COOPERATIVE. SITTER OUTSIDE OF ROOM. WILL CTM.
--- NOTE | 2020-08-19 01:04 | NUR ---
COVID SWAB OBTAINED & WALKED TO LAB. DENIES ANY NEEDS. WILL CTM. SITTER OUTSIDE OF ROOM.
--- NOTE | 2020-08-19 01:55 | NUR ---
report to catalino azevedo on the U
[2020-08-19] MEDS ORDERED: PROP40TA PO (04:39)
[2020-08-19] MEDS ORDERED: FLUT1AER INH (10:02)
[2020-08-19] MEDS ORDERED: LORA-446 PO (10:02)
[2020-08-19] MEDS ORDERED: LISI40TA9 PO (10:02)
[2020-08-19] MEDS ORDERED: BENZ0.5T35 PO (10:02)
[2020-08-19] MEDS ORDERED: FLUO20TA25 PO (10:02)
[2020-08-19] MEDS ORDERED: IBUP-1222 PO (10:02)
[2020-08-19] MEDS ORDERED: ALBU18HF INH (10:02)
[2020-08-19] MEDS ORDERED: OMEP-110 PO (10:02)
== END 2020-08-19 02:06 ==
LOC: ED 21:15
DX: R45.851 Suicidal ideations (principal); F33.9 Major depressive disorder, recurrent, unspecified; R74.01 Elevation of levels of liver transaminase levels; J44.9 Chronic obstructive pulmonary disease, unspecified; I10 Essential (primary) hypertension
CPT/HCPCS: 36415; 80053; 80143; 80179; 80307; 80320; 81003; 85025; 99285; G0480

== ENCOUNTER 2020-08-19 00:11 | Inpatient (IN) | payer MEDICARE ==
[~2020-08-19] VITALS: Ht 177.8 cm; Wt 86.2 kg
[2020-08-19] MEDS ORDERED: POLYETHYLENE GLYCOL 17 GM PACKET PO PRN (01:00)
[2020-08-19] MEDS ORDERED: ONDANSETRON ODT 4 MG PO PRN (01:00)
[2020-08-19] MEDS ORDERED: BISACODYL 10 MG SUPP PR PRN (01:00)
[2020-08-19] MEDS ORDERED: DOCUSATE 100 MG CAPSULE PO PRN (01:00)
[2020-08-19 02:04] LABS: CHOL/HDL RATIO 3.8; FREE T4 (FREE THYROXINE) 0.88 ng/dL (0.76-1.46); LDL/HDL RATIO 2.2 (0.5-3.0)
[2020-08-19] MEDS ORDERED: FLU VACC QS2020-21(6MOS UP)/PF 60MCG/0.5 ML SYR IM ONE (03:00)
[2020-08-19 03:17] VITALS: BP 130/91
[2020-08-19] MEDS ORDERED: PROP40TA PO (04:39)
[2020-08-19 07:30] VITALS: BP 126/80
[2020-08-19] MEDS ORDERED: QUETIAPINE 100MG TABLET PO SCH (09:00)
[2020-08-19] MEDS: ACETAMINOPHEN 325 MG TABLET PO PRN ×2 (09:23→20:00)
[2020-08-19] MEDS: TOPIRAMATE 25 MG TABLET PO SCH ×3 (09:24→20:01)
[2020-08-19] MEDS: NICOTINE 21 MG/24 HR PATCH.TD24 TD SCH (09:25)
[2020-08-19] MEDS ORDERED: LORA-446 PO (10:02)
[2020-08-19] MEDS ORDERED: ALBU18HF INH (10:02)
[2020-08-19] MEDS ORDERED: FLUT1AER INH (10:02)
[2020-08-19] MEDS ORDERED: BENZ0.5T35 PO (10:02)
[2020-08-19] MEDS ORDERED: FLUO20TA25 PO (10:02)
[2020-08-19] MEDS ORDERED: OMEP-110 PO (10:02)
[2020-08-19] MEDS ORDERED: LISI40TA9 PO (10:02)
[2020-08-19] MEDS ORDERED: IBUP-1222 PO (10:02)
[2020-08-19] MEDS ORDERED: MAALOX/HYOSCYAMINE/LIDOCAINE 45 ML BTL PO PRN (10:30)
[2020-08-19] MEDS: FLUTICASONE/VILANTEROL 100-25MCG/INH INH SCH (11:57)
[2020-08-19] MEDS: LISINOPRIL 40 MG TABLET PO SCH (11:58)
[2020-08-19] MEDS: OMEPRAZOLE 20 MG CAPSULE.DR PO SCH (11:58)
[2020-08-19] MEDS ORDERED: LORazepam 1MG TABLET ONE (16:27)
[2020-08-19] MEDS: LORazepam 1MG TABLET PO PRN (16:29)
[2020-08-19 19:42] VITALS: BP 114/84
[2020-08-19] MEDS: QUETIAPINE 100MG TABLET PO SCH (20:01)
[2020-08-19] MEDS: BENZTROPINE 1 MG TABLET PO SCH (20:01)
[2020-08-20] MEDS: OMEPRAZOLE 20 MG CAPSULE.DR PO SCH (06:17)
[2020-08-20] MEDS: LORazepam 1MG TABLET PO PRN ×3 (06:38→19:42)
[2020-08-20 08:00] VITALS: BP 124/90
[2020-08-20] MEDS: FLUOXETINE HCL 20 MG CAPSULE PO SCH (09:13)
[2020-08-20] MEDS: LISINOPRIL 40 MG TABLET PO SCH (09:13)
[2020-08-20] MEDS: NICOTINE 21 MG/24 HR PATCH.TD24 TD SCH (09:14)
[2020-08-20] MEDS: TOPIRAMATE 25 MG TABLET PO SCH ×3 (09:14→20:35)
[2020-08-20] MEDS: BENZTROPINE 1 MG TABLET PO SCH ×2 (09:14→20:35)
[2020-08-20] MEDS: QUETIAPINE 100MG TABLET PO SCH ×2 (09:14→20:35)
[2020-08-20] MEDS: FLUTICASONE/VILANTEROL 100-25MCG/INH INH SCH (09:15)
[2020-08-20 19:29] VITALS: BP 117/82
[2020-08-21] MEDS: OMEPRAZOLE 20 MG CAPSULE.DR PO SCH (06:09)
[2020-08-21] MEDS: LORazepam 1MG TABLET PO PRN ×3 (06:11→22:38)
[2020-08-21 06:45] VITALS: BP 117/88
[2020-08-21] MEDS: FLUTICASONE/VILANTEROL 100-25MCG/INH INH SCH (07:05)
[2020-08-21] MEDS: FLUOXETINE HCL 20 MG CAPSULE PO SCH (08:36)
[2020-08-21] MEDS: QUETIAPINE 100MG TABLET PO SCH ×2 (08:37→20:09)
[2020-08-21] MEDS: TOPIRAMATE 25 MG TABLET PO SCH ×3 (08:37→20:08)
[2020-08-21] MEDS: NICOTINE 21 MG/24 HR PATCH.TD24 TD SCH (08:38)
[2020-08-21] MEDS: LISINOPRIL 40 MG TABLET PO SCH (08:38)
[2020-08-21] MEDS: BENZTROPINE 1 MG TABLET PO SCH ×2 (08:38→20:08)
[2020-08-21] MEDS: ALBUTEROL HFA 90 MCG/SPRAY INH PRN (16:56)
[2020-08-21 19:43] VITALS: BP 103/70
[2020-08-22] MEDS: OMEPRAZOLE 20 MG CAPSULE.DR PO SCH (05:32)
[2020-08-22 07:29] VITALS: BP 111/81
[2020-08-22] MEDS: LISINOPRIL 40 MG TABLET PO SCH (08:33)
[2020-08-22] MEDS: FLUOXETINE HCL 20 MG CAPSULE PO SCH (08:33)
[2020-08-22] MEDS: NICOTINE 21 MG/24 HR PATCH.TD24 TD SCH (08:33)
[2020-08-22] MEDS: FLUTICASONE/VILANTEROL 100-25MCG/INH INH SCH (08:33)
[2020-08-22] MEDS: QUETIAPINE 100MG TABLET PO SCH ×2 (08:34→19:59)
[2020-08-22] MEDS: LORazepam 1MG TABLET PO PRN ×2 (08:34→14:40)
[2020-08-22] MEDS: TOPIRAMATE 25 MG TABLET PO SCH ×3 (08:34→19:59)
[2020-08-22] MEDS: BENZTROPINE 1 MG TABLET PO SCH ×2 (08:34→19:58)
[2020-08-22 18:27] VITALS: BP 102/71
[2020-08-23] MEDS: LORazepam 1MG TABLET PO PRN ×3 (03:16→20:18)
[2020-08-23] MEDS: OMEPRAZOLE 20 MG CAPSULE.DR PO SCH (05:34)
[2020-08-23] MEDS: FLUTICASONE/VILANTEROL 100-25MCG/INH INH SCH (07:23)
[2020-08-23 07:35] VITALS: BP 107/83
[2020-08-23] MEDS: LISINOPRIL 40 MG TABLET PO SCH (08:18)
[2020-08-23] MEDS: BENZTROPINE 1 MG TABLET PO SCH ×2 (08:18→20:10)
[2020-08-23] MEDS: TOPIRAMATE 25 MG TABLET PO SCH ×3 (08:18→20:10)
[2020-08-23] MEDS: FLUOXETINE HCL 20 MG CAPSULE PO SCH (08:19)
[2020-08-23] MEDS: QUETIAPINE 100MG TABLET PO SCH ×2 (08:19→20:11)
[2020-08-23] MEDS: NICOTINE 21 MG/24 HR PATCH.TD24 TD SCH (08:21)
[2020-08-23 19:25] VITALS: BP 100/70
[2020-08-24] MEDS: OMEPRAZOLE 20 MG CAPSULE.DR PO SCH (05:42)
[2020-08-24 07:45] VITALS: BP 104/71
[2020-08-24] MEDS: TOPIRAMATE 25 MG TABLET PO SCH ×3 (08:21→21:04)
[2020-08-24] MEDS: BENZTROPINE 1 MG TABLET PO SCH ×2 (08:21→20:06)
[2020-08-24] MEDS: ACETAMINOPHEN 325 MG TABLET PO PRN (08:21)
[2020-08-24] MEDS: LISINOPRIL 40 MG TABLET PO SCH (08:22)
[2020-08-24] MEDS: FLUOXETINE HCL 20 MG CAPSULE PO SCH (08:22)
[2020-08-24] MEDS: LORazepam 1MG TABLET PO PRN ×3 (08:22→20:05)
[2020-08-24] MEDS: QUETIAPINE 100MG TABLET PO SCH ×2 (08:22→20:07)
[2020-08-24] MEDS: NICOTINE 21 MG/24 HR PATCH.TD24 TD SCH (08:23)
[2020-08-24] MEDS: FLUTICASONE/VILANTEROL 100-25MCG/INH INH SCH (12:37)
[2020-08-24 19:31] VITALS: BP 100/65
[2020-08-25] MEDS: OMEPRAZOLE 20 MG CAPSULE.DR PO SCH (06:09)
[2020-08-25] MEDS: LORazepam 1MG TABLET PO PRN ×3 (06:12→20:39)
[2020-08-25 07:26] VITALS: BP 103/72
[2020-08-25] MEDS: FLUTICASONE/VILANTEROL 100-25MCG/INH INH SCH (08:02)
[2020-08-25] MEDS: LISINOPRIL 40 MG TABLET PO SCH (08:51)
[2020-08-25] MEDS: FLUOXETINE HCL 20 MG CAPSULE PO SCH (08:51)
[2020-08-25] MEDS: QUETIAPINE 100MG TABLET PO SCH ×2 (08:51→20:38)
[2020-08-25] MEDS: TOPIRAMATE 25 MG TABLET PO SCH ×3 (08:51→20:39)
[2020-08-25] MEDS: NICOTINE 21 MG/24 HR PATCH.TD24 TD SCH (08:52)
[2020-08-25] MEDS: BENZTROPINE 1 MG TABLET PO SCH ×2 (09:05→20:39)
[2020-08-25 19:05] VITALS: BP 120/86
[2020-08-26] MEDS: OMEPRAZOLE 20 MG CAPSULE.DR PO SCH (06:16)
[2020-08-26] MEDS: FLUTICASONE/VILANTEROL 100-25MCG/INH INH SCH (07:29)
[2020-08-26 07:51] VITALS: BP 114/83
[2020-08-26] MEDS: TOPIRAMATE 25 MG TABLET PO SCH ×3 (08:19→20:34)
[2020-08-26] MEDS: NICOTINE 21 MG/24 HR PATCH.TD24 TD SCH (08:19)
[2020-08-26] MEDS: LISINOPRIL 40 MG TABLET PO SCH (08:20)
[2020-08-26] MEDS: QUETIAPINE 100MG TABLET PO SCH ×2 (08:20→20:34)
[2020-08-26] MEDS: LORazepam 1MG TABLET PO PRN ×2 (08:20→15:51)
[2020-08-26] MEDS: FLUOXETINE HCL 20 MG CAPSULE PO SCH (08:20)
[2020-08-26] MEDS: BENZTROPINE 1 MG TABLET PO SCH ×2 (08:20→20:34)
[2020-08-26 20:04] VITALS: BP 115/79
[2020-08-27] MEDS: OMEPRAZOLE 20 MG CAPSULE.DR PO SCH (05:42)
[2020-08-27] MEDS: LORazepam 1MG TABLET PO PRN ×2 (06:01→16:42)
[2020-08-27 07:17] VITALS: BP 109/78
[2020-08-27] MEDS: FLUTICASONE/VILANTEROL 100-25MCG/INH INH SCH (08:40)
[2020-08-27] MEDS: FLUOXETINE HCL 20 MG CAPSULE PO SCH (08:52)
[2020-08-27] MEDS: BENZTROPINE 1 MG TABLET PO SCH ×2 (08:57→20:38)
[2020-08-27] MEDS: TOPIRAMATE 25 MG TABLET PO SCH ×3 (08:58→20:24)
[2020-08-27] MEDS: LISINOPRIL 40 MG TABLET PO SCH (08:58)
[2020-08-27] MEDS: QUETIAPINE 100MG TABLET PO SCH ×2 (08:59→20:25)
[2020-08-27] MEDS: ACETAMINOPHEN 325 MG TABLET PO PRN (08:59)
[2020-08-27] MEDS: NICOTINE 21 MG/24 HR PATCH.TD24 TD SCH (09:00)
[2020-08-27 19:44] VITALS: BP 100/62
[2020-08-28] MEDS: OMEPRAZOLE 20 MG CAPSULE.DR PO SCH (06:03)
[2020-08-28 07:38] VITALS: BP 106/74
[2020-08-28] MEDS: FLUTICASONE/VILANTEROL 100-25MCG/INH INH SCH (07:38)
[2020-08-28] MEDS: LORazepam 1MG TABLET PO PRN ×3 (07:45→22:53)
[2020-08-28] MEDS: QUETIAPINE 100MG TABLET PO SCH ×2 (09:27→19:56)
[2020-08-28] MEDS: LISINOPRIL 40 MG TABLET PO SCH (09:27)
[2020-08-28] MEDS: BENZTROPINE 1 MG TABLET PO SCH ×2 (09:28→19:55)
[2020-08-28] MEDS: NICOTINE 21 MG/24 HR PATCH.TD24 TD SCH (09:28)
[2020-08-28] MEDS: FLUOXETINE HCL 20 MG CAPSULE PO SCH (09:28)
[2020-08-28] MEDS: TOPIRAMATE 25 MG TABLET PO SCH ×3 (09:28→19:55)
[2020-08-28 19:03] VITALS: BP 121/80
[2020-08-28] MEDS: ALBUTEROL HFA 90 MCG/SPRAY INH PRN (19:56)
[2020-08-29] MEDS: OMEPRAZOLE 20 MG CAPSULE.DR PO SCH (05:56)
[2020-08-29] MEDS: FLUTICASONE/VILANTEROL 100-25MCG/INH INH SCH (07:05)
[2020-08-29 07:33] VITALS: BP 108/76
[2020-08-29] MEDS: LORazepam 1MG TABLET PO PRN ×2 (09:30→16:34)
[2020-08-29] MEDS: FLUOXETINE HCL 20 MG CAPSULE PO SCH (09:30)
[2020-08-29] MEDS: QUETIAPINE 100MG TABLET PO SCH ×2 (09:31→20:12)
[2020-08-29] MEDS: TOPIRAMATE 25 MG TABLET PO SCH ×3 (09:31→20:11)
[2020-08-29] MEDS: LISINOPRIL 40 MG TABLET PO SCH (09:31)
[2020-08-29] MEDS: BENZTROPINE 1 MG TABLET PO SCH ×2 (09:32→20:11)
[2020-08-29] MEDS: NICOTINE 21 MG/24 HR PATCH.TD24 TD SCH (09:38)
[2020-08-29 19:53] VITALS: BP 100/65
[2020-08-30] MEDS: LORazepam 1MG TABLET PO PRN ×3 (05:22→20:29)
[2020-08-30] MEDS: OMEPRAZOLE 20 MG CAPSULE.DR PO SCH (05:36)
[2020-08-30 05:53] VITALS: BP 103/67
[2020-08-30] MEDS: FLUTICASONE/VILANTEROL 100-25MCG/INH INH SCH (08:55)
[2020-08-30] MEDS: FLUOXETINE HCL 20 MG CAPSULE PO SCH (08:56)
[2020-08-30] MEDS: BENZTROPINE 1 MG TABLET PO SCH ×2 (08:56→20:30)
[2020-08-30] MEDS: QUETIAPINE 100MG TABLET PO SCH ×2 (08:57→20:30)
[2020-08-30] MEDS: LISINOPRIL 40 MG TABLET PO SCH (08:57)
[2020-08-30] MEDS: TOPIRAMATE 25 MG TABLET PO SCH ×3 (08:58→20:29)
[2020-08-30] MEDS: NICOTINE 21 MG/24 HR PATCH.TD24 TD SCH (08:59)
[2020-08-30 19:28] VITALS: BP 119/84
[2020-08-31] MEDS: LORazepam 1MG TABLET PO PRN ×3 (05:00→20:22)
[2020-08-31] MEDS: OMEPRAZOLE 20 MG CAPSULE.DR PO SCH (05:00)
[2020-08-31 07:38] VITALS: BP 113/79
[2020-08-31] MEDS: NICOTINE 21 MG/24 HR PATCH.TD24 TD SCH (08:34)
[2020-08-31] MEDS: LISINOPRIL 40 MG TABLET PO SCH (08:35)
[2020-08-31] MEDS: FLUOXETINE HCL 20 MG CAPSULE PO SCH (08:35)
[2020-08-31] MEDS: BENZTROPINE 1 MG TABLET PO SCH ×2 (08:35→20:22)
[2020-08-31] MEDS: TOPIRAMATE 25 MG TABLET PO SCH ×3 (08:35→20:22)
[2020-08-31] MEDS: QUETIAPINE 100MG TABLET PO SCH ×2 (08:40→20:22)
[2020-08-31] MEDS: FLUTICASONE/VILANTEROL 100-25MCG/INH INH SCH (08:45)
[2020-08-31] MEDS ORDERED: NICO-587 TD (14:34)
[2020-08-31] MEDS ORDERED: TOPI25TA32 PO (14:34)
[2020-08-31] MEDS ORDERED: QUET100T PO (14:34)
[2020-08-31] MEDS ORDERED: FLUO20CA23 PO (14:34)
[2020-08-31 19:35] VITALS: BP 105/80
[2020-09-01] MEDS: OMEPRAZOLE 20 MG CAPSULE.DR PO SCH (06:00)
[2020-09-01] MEDS: LORazepam 1MG TABLET PO PRN (06:00)
[2020-09-01 07:36] VITALS: BP 109/73
[2020-09-01] MEDS: TOPIRAMATE 25 MG TABLET PO SCH (09:23)
[2020-09-01] MEDS: BENZTROPINE 1 MG TABLET PO SCH (09:23)
[2020-09-01] MEDS: LISINOPRIL 40 MG TABLET PO SCH (09:23)
[2020-09-01] MEDS: FLUOXETINE HCL 20 MG CAPSULE PO SCH (09:23)
[2020-09-01] MEDS: QUETIAPINE 100MG TABLET PO SCH (09:24)
[2020-09-01] MEDS: NICOTINE 21 MG/24 HR PATCH.TD24 TD SCH (09:25)
== END 2020-09-01 14:17 | disposition home or self-care (01) | DRG 885 ==
LOC: 3E 02:08
PROVIDERS: ADMIT Psychiatry & Neurology Psychosomatic Medicine; ATTEND Psychiatry & Neurology Psychosomatic Medicine
DX: F25.1 Schizoaffective disorder, depressive type (principal); R45.851 Suicidal ideations; F15.20 Other stimulant dependence, uncomplicated; F43.10 Post-traumatic stress disorder, unspecified; B19.20 Unspecified viral hepatitis C without hepatic coma; F31.9 Bipolar disorder, unspecified; Z66 Do not resuscitate; J44.9 Chronic obstructive pulmonary disease, unspecified; I10 Essential (primary) hypertension; F41.1 Generalized anxiety disorder; Z79.899 Other long term (current) drug therapy; Z87.891 Personal history of nicotine dependence; Z91.5 Personal history of self-harm; K76.0 Fatty (change of) liver, not elsewhere classified; F10.20 Alcohol dependence, uncomplicated; Z20.822 Contact with and (suspected) exposure to COVID-19; Z88.8 Allergy status to other drugs, medicaments and biological substances; R51.9 Headache, unspecified; Z82.49 Family history of ischemic heart disease and other diseases of the circulatory system; Y90.9 Presence of alcohol in blood, level not specified
CPT/HCPCS: 36415; 71045; 76705; 80061; 82607; 84439; 84443; 87426; 90686; 93005; 94640; Q0162

== ENCOUNTER 2020-10-16 10:34 | Emergency (ER) | payer MEDICARE, MEDICAID ==
[~2020-10-16] VITALS: Ht 175.3 cm; Wt 88.8 kg
[~2020-10-16 10:34] MED LIST changes: +ALBU18HF INH; +BENZ0.5T35 PO; +FLUO20TA25 PO; +FLUT1AER INH; +IBUP-1222 PO; +LISI40TA9 PO; +OMEP-110 PO; +PROP40TA PO
[2020-10-16 10:44] VITALS: BP 137/76
--- NOTE | 2020-10-16 11:12 | NUR ---
[facility] from [facility],came [facility] hospital today, because he has been having suicidal thoughts x2 weeks, with increased thoughts of cutting his wrist. Pt reports hx of attempts in the past where he cut his LFA and stabbed himself in the abdomen. Pt also reports that for past 5 years he has heard sounds but 6days the cricket sound has increased, but no voices. He also reports seeing shadows in peripheral. Pt reports that the government is the one controlling the cricket sounds and "are wanting to drive him nuts to kill himself." Endorses SI/HI/AH/VH 01/29 anxiety, 11/28 depression. Pt has good eye contact during assessment, is alert and oriented x4, pt fidgety bouncing leg, placing w/ pulse ox. Pt was cooperative w/ assessment. Clothing removed, wearing gown. Garage door down x2, siderail up x1. Pt ambulated to and from bathroom w/o incident, able to provide urine sample. Sitter bedside for pt safety. Addendum: 10/16/20 at 1131 by DIDIER cream dipper removed pt belonging and placed in locker
[2020-10-16] MEDS ORDERED: ZIPRASIDONE 20 MG INJ IM ONE ×2 (11:33→12:00)
[2020-10-16 11:46] LABS: BASOPHILS % (AUTO) 1 % (0-1); EOSINOPHILS % (AUTO) 4 % (1-7); LYMPHOCYTES % (AUTO) 34 % (22-44); MEAN CORPUSCULAR HEMOGLOBIN 32.5 pg (27.5-34.5); MEAN CORPUSCULAR HGB CONC 33.9 g/dL (33.2-36.2); MEAN PLATELET VOLUME 8.7 fL (7.4-10.4); MONOCYTES % (AUTO) 11 % (2-9); NEUTROPHILS % (AUTO) 51 % (42-75); PLATELET COUNT 243 x10^3/uL (130-400); RED BLOOD COUNT 4.63 x10^6/uL (4.38-5.82); RED CELL DISTRIBUTION WIDTH 15.4 % (9.4-14.8)
[2020-10-16 11:49] LABS: MD NO
[2020-10-16 11:54] LABS: AMPHETAMINE SCREEN, URINE Negative (Negative); BARBITURATE SCREEN, URINE Negative (Negative); BENZODIAZEPINE SCREEN, URINE Negative (Negative); CANNABINOID SCREEN, URINE Negative (Negative); COCAINE SCREEN, URINE Negative (Negative); METHADONE SCREEN, URINE Negative (Negative); OPIATE SCREEN, URINE Negative (Negative)
[2020-10-16 11:57] LABS: ALANINE AMINOTRANSFERASE 190 U/L (12-78); ALBUMIN 4.1 g/dL (3.4-5.0); ANION GAP 7 mmol/L (5-15); CALCIUM 9.4 mg/dL (8.5-10.1); CHLORIDE 115 mmol/L (98-107); SALICYLATE LEVEL < 1.7 mg/dL (2.8-20.0)
[2020-10-16 12:02] LABS: ALKALINE PHOSPHATASE 152 U/L (45-117); BILIRUBIN,TOTAL 0.5 mg/dL (0.2-1.0); CREATININE 1.19 mg/dL (0.7-1.3); TOTAL PROTEIN 8.7 g/dL (6.4-8.2)
--- NOTE | 2020-10-16 12:53 | NUR ---
REPORT FROM GERBER, ASSUME CARE OF PT AT THIS TIME. SITTER AT DOORWAY. PT STATES HE'S FEELING BETTER AFTER MEDICATION. ED DIET TRAY PROVIDED. AWAITING TALENT ACQUISITION SOURCER TO SEE.
[2020-10-16] MEDS ORDERED: FLUOXETINE HCL 20 MG CAPSULE PO ONE (13:00)
[2020-10-16] MEDS ORDERED: TOPIRAMATE 25 MG TABLET PO ONE (13:00)
[2020-10-16] MEDS ORDERED: QUETIAPINE 200 MG TABLET PO ONE (13:00)
[2020-10-16] MEDS ORDERED: NICOTINE 21 MG/24 HR PATCH.TD24 TD ONE (13:00)
[2020-10-16] MEDS ORDERED: LORazepam 1MG TABLET PO ONE (13:00)
[2020-10-16] MEDS ORDERED: LORazepam 1MG TABLET ONE (13:06)
[2020-10-16] MEDS ORDERED: QUETIAPINE 100MG TABLET ONE (13:06)
[2020-10-16] MEDS ORDERED: FLUOXETINE HCL 20 MG CAPSULE ONE (13:06)
[2020-10-16] MEDS ORDERED: NICOTINE 21 MG/24 HR PATCH.TD24 ONE (13:36)
--- NOTE | 2020-10-16 13:50 | NUR ---
MED RECEIVED FROM PHARMACY. PT MEDICATED, THEN BACK TO SLEEP. PT COOPERATIVE WITH CARE AND PLEASANT. SITTER AT DOORWAY. LIGHTS DIMMED, HEAD POSITION ON GURNEY DOWN.
--- NOTE | 2020-10-16 15:34 | NUR ---
YANCY MENDEZ COLLECTED/SPECIMEN WALKED TO LAB.
--- NOTE | 2020-10-16 17:13 | NUR ---
MEAL TRAY PROVIDED, PT TRANSPORTED TO [facility].
[2020-10-16] MEDS ORDERED: PALIPERIDONE 3 MG TAB.ER.24 PO SCH (21:00)
[2020-10-16] MEDS ORDERED: TOPIRAMATE 25 MG TABLET PO SCH (21:00)
[2020-10-17] MEDS ORDERED: FLUOXETINE HCL 20 MG CAPSULE PO SCH (09:00)
== END 2020-10-17 06:18 | disposition other institution (70) ==
LOC: ED 12:00
DX: R45.851 Suicidal ideations (principal); Z20.822 Contact with and (suspected) exposure to COVID-19; R44.1 Visual hallucinations; J44.9 Chronic obstructive pulmonary disease, unspecified; I10 Essential (primary) hypertension; Z88.8 Allergy status to other drugs, medicaments and biological substances; Z88.1 Allergy status to other antibiotic agents
CPT/HCPCS: 36415; 80053; 80299; 80307; 80320; 85025; 87426; 96372; 99284; J3486; 80329; G0480

== ENCOUNTER 2020-12-24 08:15 | Emergency (ER) | payer MEDICARE, MEDICAID ==
[~2020-12-24] VITALS: Ht 177.8 cm; Wt 86.1 kg
[~2020-12-24 08:15] MED LIST changes: +CLON1TAB11 PO; +PALI3TAB11 PO; +TAMS-11 PO; +TRAM50TA2 PO; +TRAZ50TA66 PO; +TRIH2TAB3 PO
[2020-12-24 08:21] VITALS: BP 135/109
--- NOTE | 2020-12-24 08:46 | NUR ---
ACCOUNTING COORDINATOR: PT TO ROOM, GAIT STEADY
[2020-12-24] MEDS ORDERED: LORazepam 1MG TABLET PO ONE (09:00)
--- NOTE | 2020-12-24 09:04 | NUR ---
PATIENT WALKED BACK FROM WALL WITH CHIEF C/O "SUICIDAL THOUGHTS." PATIENT REPORTS HE IS HEARING "THE SOUND" AND THE "PEOPLE ARE TELLING ME TO HURT MYSELF." PATIENT REPORTS THIS HAS BEEN GOING ON THE LAST 4-5 DAYS. PATIENT DOES NOT APPEAR IN DISTRESS, SUICIDE PRECAUTIONS IN PLACE, PATIENT BELONGINGS TAKEN AND LOCKED IN CABINET.
--- NOTE | 2020-12-24 09:10 | NUR ---
PATIENT AMBULATED TO BATHROOM WITH STEADY GAIT FOR URINE SAMPLE.
[2020-12-24] MEDS ORDERED: LORazepam 1MG TABLET ONE (09:17)
--- NOTE | 2020-12-24 09:18 | NUR ---
URINE COLLECTED AND SENT TO LAB.
[2020-12-24 09:22] LABS: BASOPHILS % (AUTO) 1 % (0-1); EOSINOPHILS % (AUTO) 6 % (1-7); LYMPHOCYTES % (AUTO) 30 % (22-44); MEAN CORPUSCULAR HEMOGLOBIN 32.8 pg (27.5-34.5); MEAN CORPUSCULAR HGB CONC 33.5 g/dL (33.2-36.2); MEAN PLATELET VOLUME 8.5 fL (7.4-10.4); MONOCYTES % (AUTO) 10 % (2-9); NEUTROPHILS % (AUTO) 52 % (42-75); PLATELET COUNT 288 x10^3/uL (130-400); RED BLOOD COUNT 5.57 x10^6/uL (4.38-5.82); RED CELL DISTRIBUTION WIDTH 15.2 % (9.4-14.8)
[2020-12-24 09:30] LABS: ALBUMIN 3.7 g/dL (3.4-5.0); ANION GAP 10 mmol/L (5-15); CALCIUM 9.4 mg/dL (8.5-10.1); CHLORIDE 113 mmol/L (98-107); CREATININE 1.47 mg/dL (0.7-1.3)
[2020-12-24 09:40] LABS: SALICYLATE LEVEL < 1.7 mg/dL (2.8-20.0)
[2020-12-24 09:45] LABS: AMPHETAMINE SCREEN, URINE Negative (Negative); BARBITURATE SCREEN, URINE Negative (Negative); BENZODIAZEPINE SCREEN, URINE Negative (Negative); CANNABINOID SCREEN, URINE Negative (Negative); COCAINE SCREEN, URINE Negative (Negative); METHADONE SCREEN, URINE Negative (Negative); OPIATE SCREEN, URINE Negative (Negative)
--- NOTE | 2020-12-24 10:13 | NUR ---
PATIENT SITTING IN CHAIR, NADN, SUICIDE PRECAUTIONS IN PLACE, SITTER IN LINE OF SIGHT. MEAL TRAY ORDERED.
--- NOTE | 2020-12-24 11:23 | NUR ---
PATIENT LAYING IN GURNEY WITH EYES CLOSED, RESP EVEN AND UNLABORED, SUICIDE PRECAUTIONS IN PLACE, SITTER IN LINE OF SIGHT.
--- NOTE | 2020-12-24 11:39 | NUR ---
RECEIVED REPORT FROM NIKOLAI ZAMORANO. PT AMBULATED STEADILY TO RM2 FROM RM 39, CALM & COOPERATIVE, RESPONDS APPROP TO STAFF, NAD, COMFORT MEASURES PROVIDED, PT IN SAFE ENVIRONEMTN, SITTER IN VIEW, PT BELONGINGS MOVED APPROP IN LOCKER TO CORRESPONDING BIN.
--- NOTE | 2020-12-24 11:42 | NUR ---
REPORT TO LONA DAVIS FOR TRANSFER OF PATIENT CARE.
--- NOTE | 2020-12-24 12:00 | NUR ---
PT LAYING ON BED AWAKE, CALM & COOPERATIVE, REPORTS AH "TELLING ME TO KILL MYSELF", REASSURANCE GIVEN & PT IS EASILY REDIRECTABLE, RESPONDS APPROP TO STAFF, MEAL TRAY GIVEN- NO OTHER NEEDS AT THIS TIME, PT REMAINS IN SAFE ENVIRONMENT, SITTER IN VIEW.
--- NOTE | 2020-12-24 12:10 | NUR ---
LUNCH TRAY GIVEN
--- NOTE | 2020-12-24 12:52 | NUR ---
TASK RN: PT RESTING IN BED. SITTER REMAINS AT BEDSIDE. ROOM REMAINS SECURE.
[2020-12-24] MEDS ORDERED: FLUOXETINE HCL 20 MG CAPSULE ONE (13:28)
[2020-12-24] MEDS ORDERED: FLUOXETINE HCL 20 MG CAPSULE PO ONE (13:30)
[2020-12-24] MEDS ORDERED: PALIPERIDONE 6 MG TAB.ER.24 PO ONE (13:30)
[2020-12-24] MEDS ORDERED: TRIHEXYPHENIDYL 2MG TABLET PO ONE (13:30)
--- NOTE | 2020-12-24 14:01 | NUR ---
PT LAYING ON BED AWAKE, ANXIOUS BUT COOPERATIVE, REASSURANCE & REDIRECTION HELPFUL, RESPONDS APPROP TO STAFF, NO NEEDS AT THIS TIME WHILE AWAITING MEDS FROM PHARMACY, PT REMAINS IN SAFE ENVIRONMENT, SITTER IN VIEW.
--- NOTE | 2020-12-24 15:02 | NUR ---
PT CONTINUES LAYING CALMLY ON BED WITH EYES CLOSED, COOPERATIVE & RESPONDS APPROP TO STAFF, MEDICATED PER EMAR, NO NEEDS AT THIS TIME, PT REMAINS IN SAFE ENVIRONMENT, SITTER IN VIEW.
--- NOTE | 2020-12-24 16:03 | NUR ---
PT SLEEPING CALMLY ON GURNEY, NAD WITH EQUAL CHEST RISE/FALL, NO NEEDS AT THIS TIME, PT REMAINS IN SAFE ENVIRONMENT, SITTER IN VIEW.
[2020-12-25] MEDS ORDERED: LISI40TA9 PO (11:33)
[2020-12-25] MEDS ORDERED: TAMS-11 PO (11:33)
[2020-12-25] MEDS ORDERED: TRIH2TAB3 PO (11:33)
[2020-12-25] MEDS ORDERED: QUET400T4 PO (11:33)
[2020-12-25] MEDS ORDERED: PALI9TAB PO (11:33)
[2020-12-25] MEDS ORDERED: TRAM50TA2 PO (11:33)
[2020-12-25] MEDS ORDERED: TOPI25CA5 PO (11:33)
[2020-12-25] MEDS ORDERED: TRAZ-175 PO (11:33)
== END 2020-12-24 16:52 ==
LOC: ED 10:20
DX: R45.851 Suicidal ideations (principal); F20.9 Schizophrenia, unspecified; J44.9 Chronic obstructive pulmonary disease, unspecified; I10 Essential (primary) hypertension
CPT/HCPCS: 36415; 80048; 80299; 80307; 80320; 80329; 82040; 85025; 99285; G0480